=== PATIENT | male | born 1985 | race Caucasian/White ===

== ENCOUNTER → 2021-12-05 | Day surgery (SDC) | payer SELFPAY ==
--- NOTE | 2021-12-03 13:26 | P.HPOR ---
History of Present Illness H&P Date: 12/03/21 Chief Complaint: Right distal biceps tendon rupture Subjective: This is a 36 year old male that presents today for initial evaluation regarding a right elbow injury that occurred on 11/18/21 when he was lifting a trailer and felt a pop in his right elbow and and immediate pain, swelling and bruising at the anterior aspect of the elbow. He has been in a splint/sling since his injury and initial evaluation the day of his injury at an outside ED. 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 He denies any prior injury to this extremity in the past. Physical Examination: RUE: AIN/PIN/Radial/Ulnar/Median motor intact. Radial/Ulnar/Median SILT. 2+/4 Radial/Ulnar pulses palpated. 5/5 APB, 5/5 FDI. Positive Hook test. SILT LABCN distribution. Pain with wrist supination. 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 Remainder of exam limited due to pain. Imaging: X-Rays of the right elbow and humerus were reviewed from outside ED visit which reveal no acute fracture/dislocation. MRI of right elbow demonstrates complete tear of distal biceps tendon with 1.5cm of retraction. Impression: 1.) Right distal biceps tendon rupture Plan: Diagnosis and treatment options were discussed with the patient. 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 Risks and benefits of surgery including bleeding, infection, damage to surrounding tissue, need for further surgery, residual numbness were discussed and the patient wished to go forward with surgery. He will tentatively be scheduled for a right elbow distal biceps tendon repair with Arthrex suture button fixation. We discussed he will be nonweight bearing until post op week 6 but we will start immediate range of motion at his first op appointment. He was agreeable with this plan of action and is to remain in the sling for comfort until surgery. -Erwin Mart DO Orthopedic Hand/Upper Extremity Surgeon Physical Examination Osteopathic Statement: *. No significant issues noted on an osteopathic structural exam other than those noted in the History and Physical/Consult.
[2021-12-03 15:05] VITALS: BMI 31.5
[~2021-12-05] MED LIST: DEXAMETHASONE SOD PHOSPHATE 4 MG/ML 1 ML VIAL IV ONE; HYDROcodone/APAP 5-325MG 1 EACH TAB ONE; HYDROcodone/APAP 5-325MG 1 EACH TAB PO ONE; KETAMINE 10 MG/ML 20 ML VIAL ONE; LACTATED RINGERS 1,000 ML IV ONE; LACTATED RINGERS 1,000 ML IV SCH; LIDOCAINE 2% INJ 20 MG/ML (2 ML VIAL) ONE; MIDAZOLAM 2 MG/2 ML VIAL IVP ONE; MIDAZOLAM 2 MG/2 ML VIAL ONE; ONDANSETRON 4 MG/2 ML VIAL IVP ONE; ONDANSETRON 4 MG/2 ML VIAL ONE; PROPOFOL 10 MG/ML 20 ML VIAL IV ONE; fentaNYL (PF) 50 MCG/ML 2 ML AMP ONE
[2021-12-05] MEDS: HYDROmorphone 0.5 MG/0.5 ML SYRINGE IVP PRN ×2 (16:50→17:02)
[2021-12-05 16:55] VITALS: TEMP 97.7
--- NOTE | 2021-12-05 18:48 | P.OP ---
Date of Procedure: 12/05/21 Preoperative Diagnosis: Right distal biceps tendon tear Postoperative Diagnosis: Right distal biceps tendon tear Procedure(s) Performed: Right distal biceps tendon repair Implants: Arthrex distal biceps suture button Anesthesia: WYATT, regional Surgeon: Erwin Mart Wax Pourer #1: Rhett Nelson Estimated Blood Loss (ml): 10 Pathology: none sent Condition: stable Disposition: PACU Description of Procedure: This is a 36 year old male with a history of a right distal biceps tendon rupture that occurred while lifting a heavy trailer. MRI confirmed complete rupture of his right distal biceps tendon. He presents today for right distal biceps tendon rupture repair. Risks and benefits of surgery were discussed with the patient including bleeding, damage to surrounding tissue, infection, paresthesias, need for further surgery as well as risks of anesthesia including pulmonary embolism and even and the patient wished to proceed with surgical intervention. The patients was seen in the pre-operative area by myself. Consent and H&P were completed and updated. The correct extremity was marked in the pre-operative area by myself and all other questions were answered. Patient received an upper extremity nerve block by the department of anesthesia. He then was brought to the operating room by the department of anesthesia. He was transferred to the operative table and a rolling hand table was brought to the side of the operative extremity. The patient was then drifted off to sleep by the department of anesthesia. A nonsterile tourniquet was then applied to the operative extremity and the right upper extremity was then prepped and draped in normal sterile fashion. Pre-operative time out was performed indicating the correct patient, procedure and laterality. All in the room agreed. Pre-operative antibiotics were given prior to skin incision. The operative extremity was the exsanguinated with an esmarch bandage and the tourniquet was inflated to 250mmHg. 15 blade scalpel was used to make a 4cm transverse incision 3 cm distal to the anterior elbow antecubital fossa crease. Blunt dissection was then performed in subcutaneous tissues, retractors were placed taking care to not put excessive force laterally to avoid pressure on the LABCN. Seroma was identified and the distal end of the biceps tendon was identified just proximal to the bicipital grove with adhesions formed to the surrounding leny and vascular structures which were carefully dissected, the end of the tendon was then grasped with an Salima clamp. Edges were trimmed of degenerative tissue to create a more profiled distal tip. A number 2 looped fiberwire was then used to sequentially grasp the tendon starting 2.5cm proximal to the distal end. The last stitch was placed in a locking fashion. Tendon sizer was then utilized the distal tendon was able to fit through a 8mm hole. Attention was then brought back to the antecubital fossa and deeper dissection was taken down to the radial tuberosity. Tendon remnants were debrided carefully with rongeur. The forearm was then maximally supinated to reveal the bicipital tuberosity on the radius in order to move the PIN nerve as far radial as possible. A 3.2mm guide pin was then inserted bicortically into the radial tuberosity aimed 30 degrees ulnarly to avoid PIN damage. Initial pin placement was deemed to far proximal therefore new guide pin location was made centered slightly distal to the original. Correct placement was then confirmed on flouroscopy. A 8mm drill was then used to drill the near cortex only. The wound was then copiously irrigated. The free ends of the suture where then passed through the arthrex cortical button to engage the tension slide mechanism. Cortical button was placed into the button inserted and inserted through the drill hole and deployed. Tension was then applied to snug the cortical button flush against the dorsal cortex. The free suture limbs were then tensioned to fully dock the tendon in the bone tunnel. A free needle was then used to pass one limb through the tendon and a knot was tied. Mini C arm was then used to confirm that the button had flipped and was lying flush against the cortex. The wound was then irrigated. Closure was performed with interrupted 4-0 monocryl suture followed by a running subcuticular suture. Exofin glue was then applied to the wound. 4x4s, webril and a waleska wrap and sling were applied. The tourniquet was let down and the hand had immediate normal perfusion. The patient was then woken and transferred to PACU in stable condition. Rhett CABRALES was present for the case and aided in assistance in hardware placement and protection of vital neurovascular structures. Erwin Mart DO Orthopedic Hand/Upper Extremity Surgeon
[2021-12-05 19:37] VITALS: BP 131/76; PULSE 92; RESP 16
== END | disposition home or self-care (01) ==
LOC: OR 12:34
PROVIDERS: ATTEND Orthopaedic Surgery Hand Surgery
DX: S46.211A Strain of muscle, fascia and tendon of other parts of biceps, right arm, initial encounter (principal); K21.9 Gastro-esophageal reflux disease without esophagitis; F41.9 Anxiety disorder, unspecified; Z88.0 Allergy status to penicillin; Z88.6 Allergy status to analgesic agent; X50.0XXA Overexertion from strenuous movement or load, initial encounter
CPT/HCPCS: 24342; C1713; J2250; J1100; J0690; J2405; J3010; J2704; J1170; J2001